=== PATIENT | male | born 1930 | race Hispanic/Latino ===

== ENCOUNTER 2017-01-04 03:23 | Inpatient (IN) | payer MEDICARE, MEDICAID ==
[2017-01-04 03:29] VITALS: BMI 17.8
--- NOTE | 2017-01-04 03:38 | ED PDOC ---
Arrival/HPI - General Time Seen by Provider: 01/04/17 03:25 Historian: EMS - History of Present Illness Narrative History of Present Illness (Text): 01/04/17 03:36 An 86 year old female, whose past medical history includes dementia, presents [facility] the emergency department [facility] for possible hematuria. Patient has no other complaints at this time. Symptom Onset: Sudden Symptom Course: Unchanged Activities at Onset: Rest Context: Other (usp) Past Medical History - Provider Review Nursing Documentation Reviewed: Yes - Infectious Disease Hx of Infectious Diseases: None - Cardiac Hx Cardiac Disorders: Yes Hx Hypertension: Yes - Pulmonary Hx Respiratory Disorders: Yes Hx Pneumonia: Yes - Neurological Hx Neurological Disorder: Yes (memory loss) Hx Dementia: Yes Hx Dizziness: Yes Hx Parkinson's Disease: Yes - HEENT Hx Difficulty Chewing: ( denies he has "no problem") Other/Comment: slow response to questions - Renal Hx Renal Failure: Yes - Endocrine/Metabolic Hx Diabetes Mellitus Type 2: Yes - Hematological/Oncological Hx Blood Disorders: No - Integumentary Hx Dermatological Disorder: No Other/Comment: slight redness to buttocks, hard thick toenails both feet, r great toenail removed post fall today, gis technician avulsed and removed nail in ed dsd intact - Musculoskeletal/Rheumatological Hx Falls: Yes - Gastrointestinal Hx Gastrointestinal Disorders: No - Genitourinary/Gynecological Hx Hematuria: Yes (09/05/14) Hx Prostate Problems: Yes (BPH) Hx Urinary Tract Infection: Yes - Psychiatric Hx Psychophysiologic Disorder: No Hx Depression: No Hx Emotional Abuse: No Hx Physical Abuse: No Hx Substance Use: No - Surgical History Hx Orthopedic Surgery: Yes (l knee sx) - Anesthesia Hx Anesthesia Reactions: No Hx Malignant Hyperthermia: No - Suicidal Assessment Feels Threatened In Home Enviroment: No Family/Social History - Physician Review Nursing Documentation Reviewed: Yes Family/Social History: No Known Family HX Smoking Status: Never Smoked Hx Alcohol Use: No Hx Substance Use: No Hx Substance Use Treatment: No Allergies/Home Meds Allergies/Adverse Reactions: Allergies No Known Allergies Allergy (Verified 04/01/16 18:41) Home Medications: Home Meds Medication Instructions Recorded Confirmed Atorvastatin [Lipitor] 20 mg PO HS 06/09/13 01/04/17 Tamsulosin [Flomax] 0.4 mg PO DAILY 06/15/13 01/04/17 Carbidopa/Levodopa 25/100 CR 1 tab PO BID 12/28/15 01/04/17 [Sinemet CR] Digoxin [Lanoxin] 0.125 mg PO DAILY 12/28/15 01/04/17 Donepezil [Aricept] 5 mg PO HS 03/29/16 01/04/17 Docusate [Colace] 2 cap PO HS 01/04/17 01/04/17 Insulin Detemir [Levemir] 18 units SC HS 01/04/17 01/04/17 Insulin Human Regular [Novolin R] 1 unit SC BID 01/04/17 01/04/17 Review of Systems - Review of Systems Systems not reviewed;Unavailable: Dementia Physical Exam - Physical Exam Narrative Physical Exam (Text): 01/04/17 03:40- Review of Systems Possible hematuria; patient is awake and alert, not anxious. Review of system is unavailable due to patient's dementia. - Physical exam Patient appears age appropriate, speaking full sentences without difficulty - Systems Exam Head: Present: Atraumatic, Normocephalic Pupils: Present: PERRL Extraocular Muscles: Present: EOMI Conjunctiva: Present: Normal Mouth: Present: Moist Mucous Membranes Neck: Present: Normal Range of Motion. No: MIDLINE TENDERNESS, Paraspinal Tenderness Respiratory/Chest: Present: Clear to Auscultation, Good Air Exchange. No: Respiratory Distress, Accessory Muscle Use, Tachypneic Cardiovascular: Present: Regular Rate and Rhythm, Normal S1, S2, Peripheral Pulses Present. No: Murmurs Abdomen: Present: Normal Bowel Sounds, No: Tenderness, Peritoneal Signs, Rebound, Guarding, Distention Back: Present: Normal Inspection. No: Midline Tenderness, Paraspinal Tenderness Upper Extremity: Present: Normal Inspection. No: Cyanosis, Edema Lower Extremity: Present: Normal Inspection. No: Edema Neurological: Present: GCS=15, Speech Normal, cranial nerves II through XII fully intact with no cerebellar abnormality, neuro-sensory fully intact. No focal neurological deficits. Skin: Present: Warm, Dry, Normal Color. No: Rashes Lymphatic: Present: OX3, NI, NC Psychiatric: Present: Alert No: anxiety Rectal: (Obi rn present) guaiac negative Genitourinary male: No penile or testicular tenderness, no blood at urethral meatus Vital Signs Reviewed: Yes Vital Signs Temp Pulse Resp BP Pulse Ox 05/06/17 06:00 65 16 134/57 L 01/04/17 04:18 98.0 F 78 H 105/43 L 100 Temperature: Afebrile Blood Pressure: Hypotensive Respiratory Rate: Tachypneic Appearance: Positive for: Well-Appearing, Non-Toxic, Comfortable Pain Distress: None Mental Status: No: Agitated, Lethargic Medical Decision Making ED Course and Treatment: 01/04/17 03:48 Impression: An 86 year old male with dementia presents with possible hematuria. On physical exam, patient alert, not anxious. On rectal exam (Obi RN present), guaiac negative. On genitourinary exam, no penile tenderness genitalia no blood at urethral meatus. Differential Diagnosis include but are not limited to: hematuria vs. hemorrhagic cystitis vs. UTI Plan: -- Labs -- Urinalysis -- IV fluids -- Reassess and disposition Prior Visits: Notes and results from previous visits were reviewed. Patient was last reported to emergency department on 04/01/16 for evaluation of weakness. Patient was admitted to telemetry. Patient was discharged on 04/03/16 and advised to take medications. Progress Notes: 01/04/17 05:[address] Meza in detail, who states to admit patient to obs under his service with Urology on consult. - Lab Interpretations Lab Results: 01/04/17 04:00 01/04/17 04:00 Lab Results 01/04/17 05:15: Urine Color Red, Urine Appearance Bloody, Urine pH 6.5, Ur Specific [place] 1.020, Urine Protein >=300 H, Urine Glucose (UA) 500 H, Urine Ketones Trace H, Urine Blood Large H, Urine Nitrate Positive H, Urine Bilirubin Moderate H, Urine Urobilinogen 1.0 H, Ur Leukocyte Esterase Trace H, Urine RBC Tntc, Urine WBC 2 - 5, Ur Epithelial Cells 1 - 3, Urine Bacteria Small 01/04/17 04:00: PT 11.0, INR 1.02, APTT 26.3 01/04/17 04:00: Sodium 142, Potassium 4.1, Chloride 103, Carbon Dioxide 30, Anion Gap 13, BUN 31 H, Creatinine 1.2, Est GFR ( Amer) > 60, Est GFR ( Non-Af Amer) 57, Random Glucose 44 L* D, Calcium 8.9, Total Bilirubin 0.6, AST 47, ALT 40, Alkaline Phosphatase 77, Total Protein 7.5, Albumin 3.4, Globulin 4.2, Albumin/Globulin Ratio 0.8 L 01/04/17 04:00: WBC 10.0, RBC 5.18, Hgb 15.0, Hct 45.6, MCV 88.0, MCH 29.0, MCHC 32.9, RDW 14.3, Plt Count 339, MPV 10.7, Gran % 53.3, Lymph % (Auto) 23.4, [place] % (Auto) 7.7 H, Eos % (Auto) 14.7 H, Baso % (Auto) 0.9, Gran # 5.35, Lymph # 2.4, [place] # 0.8 H, Eos # 1.5 H, Baso # 0.09 01/04/17 03:51: POC Glucose (mg/dL) 48 L I have reviewed the lab results: Yes - Medication Orders Current Medication Orders: Discontinued Medications Dextrose (Dextrose 50% Inj) 100 ml IVP STAT STA Stop: 01/04/17 03:54 Last Admin: 01/04/17 04:01 Dose: 100 ml Sodium Chloride (Sodium Chloride 0.9%) 500 mls @ 1,000 mls/hr IV .Q30M STA Stop: 01/04/17 04:09 Last Admin: 01/04/17 04:10 Dose: 1,000 mls/hr Ceftriaxone Sodium (Rocephin 1 Gram Ivpb) 1 gm in 100 mls @ 200 mls/hr IV STAT STA PRN Reason: Protocol Stop: 01/04/17 06:10 Last Admin: 01/04/17 06:05 Dose: 200 mls/hr - Scribe Statement Lali Monet All medical record entries made by the Scribe were at my direction and personally dictated by me. I have reviewed the chart and agree that the record accurately reflects my personal performance of the history, physical exam, medical decision making, and the department course for this patient. I have also personally directed, reviewed, and agree with the discharge instructions and disposition. Disposition/Present on Arrival - Present on Arrival Any Indicators Present on Arrival: No History of DVT/PE: No History of Uncontrolled Diabetes: No Urinary Catheter: No History Surgical Site Infection Following: None - Disposition Have Diagnosis and Disposition been Completed?: Yes Diagnosis: Hematuria Disposition: HOSPITALIZED Disposition Time: 05:49 Patient Plan: Observation Condition: FAIR
[2017-01-04] MEDS ORDERED: Sodium Chloride 0.9% 500 ML IV STA (03:40)
[2017-01-04] MEDS ORDERED: Dextrose 50% SYRINGE Inj (50 ml) IVP STA (03:53)
[2017-01-04 04:22] LABS: ADD MANUAL DIFF? NO
[2017-01-04 04:36] LABS: ALB/GLOB RATIO 0.8 (1.1-1.8); ALKALINE PHOSPHATASE 77 U/L (38-133); ALT/SGPT 40 U/L (7-56); AST/SGOT 47 U/L (15-59); BILIRUBIN,TOTAL 0.6 mg/dL (0.2-1.3); BLOOD UREA NITROGEN 31 mg/dL (7-21); CALCIUM 8.9 mg/dL (8.4-10.5); CARBON DIOXIDE 30 mmol/L (21-33); CHLORIDE 103 mmol/L (98-107); GFR AFRICAN-AMERICAN > 60; POTASSIUM 4.1 mmol/L (3.6-5.0); SODIUM 142 mmol/L (132-148); TOTAL PROTEIN 7.5 g/dL (5.8-8.3)
[2017-01-04 04:38] LABS: HEMATOCRIT 45.6 % (42.0-52.0); MEAN CORPUSCULAR HGB CONC 32.9 g/dl (31.0-37.0)
[2017-01-04 04:39] LABS: BASO # 0.09 [, K/mm3] (0.0-2.0); BASO % 0.9 % (0.0-3.0); EOS # 1.5 (0.0-0.7); EOS % 14.7 % (1.5-5.0); GRAN # 5.35 (1.4-6.5); GRAN % 53.3 % (50.0-68.0); LYMPH # 2.4 (1.2-3.4); LYMPH % 23.4 % (22.0-35.0); MEAN PLATELET VOLUME 10.7 fl (7.0-11.0); MONO # 0.8 (0.1-0.6); MONO % 7.7 % (1.0-6.0); PLATELET COUNT 339 [, 10^3/uL] (120.0-450.0); RED CELL DISTRIBUTION WIDTH 14.3 % (11.5-14.5)
[2017-01-04 04:45] LABS: INR 1.02 (0.93-1.08); PARTIAL THROMBOPLASTIN TIME 26.3 Seconds (23.7-30.8)
[2017-01-04 04:47] LABS: GLUCOSE,RANDOM 44 mg/dL (70-110)
[2017-01-04 05:33] LABS: PH,URINE 6.5 (4.7-8.0); URINE BILIRUBIN MODERATE (NEGATIVE); URINE BLOOD LARGE (NEGATIVE); URINE GLUCOSE (UA) 500 mg/dL (NEGATIVE); URINE KETONE TRACE mg/dL (NEGATIVE); URINE LEUKOCYTE ESTERASE TRACE Leu/uL (NEGATIVE); URINE PROTEIN >=300 mg/dL (<30 mg/dL)
[2017-01-04] MEDS ORDERED: cefTRIAXone 1 gm 1 GM/100 ML BAG IV STA (05:41)
[2017-01-04 05:44] LABS: URINE APPEARANCE BLOODY (CLEAR)
[2017-01-04 06:01] LABS: URINE BACTERIA SMALL (NEG); URINE COLOR RED (YELLOW); URINE RBC TNTC /hpf (0-2)
[2017-01-04] MEDS: cefTRIAXone 1 gm 1 GM/100 ML BAG IVPB SCH (10:58)
[2017-01-04] MEDS: Digoxin 125 mcg (0.125 mg) Tab PO SCH (10:58)
[2017-01-04] MEDS: Carbidopa/Levodopa 25/100 CR PO SCH ×2 (11:00→18:00)
[2017-01-04] MEDS: Levothyroxine 100 MCG TAB PO SCH (11:01)
[2017-01-04] MEDS ORDERED: Pneumococcal 23-Valent Vaccine IM ONE (13:16)
[2017-01-04] MEDS: Insulin Reg-MEDIUM-Coverage SC SCH ×3 (13:49→21:29)
--- NOTE | 2017-01-04 13:55 | CT ---
PROCEDURE: CT Abdomen and Pelvis without intravenous contrast HISTORY: hematuria COMPARISON: 12/29/2015. TECHNIQUE: Technique. Contrast Dose: Radiation dose: Total exam DLP = 240 mGy-cm. This CT exam was performed using one or more of the following dose reduction techniques: Automated exposure control, adjustment of the mA and/or kV according to patient size, and/or use of iterative reconstruction technique. FINDINGS: LOWER THORAX: Unremarkable. LIVER: Unremarkable. No gross lesion or ductal dilatation. GALLBLADDER AND BILE DUCTS: Unremarkable. PANCREAS: Unremarkable. No gross lesion or ductal dilatation. SPLEEN: Unremarkable. ADRENALS: Unremarkable. No mass. KIDNEYS AND URETERS: Unremarkable. No hydronephrosis. No solid mass. VASCULATURE: Unremarkable. No aortic aneurysm. BOWEL: Unremarkable. No obstruction. No gross mural thickening. APPENDIX: Unremarkable. Normal appendix. PERITONEUM: Unremarkable. No free fluid. No free air. LYMPH NODES: Unremarkable. No enlarged lymph nodes. BLADDER: Multiple bladder calculi. . REPRODUCTIVE: Prostate enlargement. BONES: No acute fracture. OTHER FINDINGS: None. IMPRESSION: Unremarkable non contrast enhanced CT of the abdomen and pelvis.
--- NOTE | 2017-01-04 14:35 | HP ---
HISTORY OF PRESENT ILLNESS: The patient is an 86-year-old patient of Dr. Meza, covering him for over the weekend. [facility] of blood in the urine. He does compl ain of some discomfort in the lower abdominal area and he is very anxious about it. Denies any fever or chills. The patient is not a very good historian; however, information obtained from old medical record and ER physician's report. He states he does not have good appetite. Denies any nausea or v omiting currently. PAST MEDICAL HISTORY: Significant for: 1. Parkinson disease. 2. Dementia. 3. Hypothyroidism. 4. Noninsulin dependent diabetes. 5. Hyperlipidemia. 6. Coronary artery disease. 7. History of benign prostatic hypertrophy. ALLERGIES: He is not allergic to any medication. MEDICATIONS IN The REHAB: He is on Flomax 0.4 daily, levothyroxine 100 mcg daily, Levemir 18 units a t bedtime. He is on Aricept, digoxin 0.125 daily, carbidopa/levodopa 1 tablet twice a day, atorvasta tin 20 mg at bedtime, aspirin 81 daily. SOCIAL HISTORY: He is , currently was on rehabilitation. Denies smoking, drinking or alcohol abuse. REVIEW OF SYSTEMS: Significant for being anxious, having suprapubic discomfort and poor appetite. PHYSICAL EXAMINATION: GENERAL: He is awake and alert, communicative, answers simple questions. VITAL SIGNS: He is afebrile, pulse 63, blood pressure 105/43. LUNGS: Bilateral fair airflow, no rhonchi or crackle. HEART: S1, S2 audible. ABDOMEN: Soft, slight suprapubic discomfort. No rebound, no guarding. NEUROLOGIC: He is awake and alert, communicative. Moves all extremities. EXTREMITIES: Bilateral leg, no edema. LABORATORY DATA: WBC is 10, hemoglobin 15, hematocrit 45, platelets 339. PT 11.0, INR 1.02. Chemis try: Sodium 142, potassium 4.1, chloride 103, CO2 30, BUN 31, creatinine 1.2, blood sugar 185. Urin alysis shows large blood, positive nitrites and moderate bilirubin, trace leukocyte. ASSESSMENT: 1. Hematuria, rule out underlying urinary tract infection versus nephrolithiasis versus benign prost atic hypertrophy. 2. Parkinson's disease. 3. Non-insulin dependent diabetes. 4. Hypertension. PLAN: Will continue patient on Aricept, aspirin, and start him on some laxatives and continue his Fl omax. We will monitor his blood sugar, currently it is running low because of his poor oral intake. We will keep him on sliding scale. Once he starts eating well, we will put him on scheduled dose. Dr. Salazar has been consulted, awaiting his input. Empirically start him on IV antibiotics since he palumbo s positive leukocyte and blood in the urine. Urine cultures are sent. We will follow up sensitivity report. Jaye Valdez MD cc: [phone] TT: 01/04/2017 14:34:22 jn
[2017-01-04] MEDS ORDERED: Insulin Reg-MEDIUM-Coverage SC SCH (18:00)
[2017-01-04] MEDS: Insulin Detemir 100 units/ml Vial (Levemir) SC SCH (21:33)
--- NOTE | 2017-01-05 00:13 | CP.PCM.PN ---
Subjective - Date & Time of Evaluation Date of Evaluation: 01/05/17 Time of Evaluation: 00:12 - Subjective Subjective: Patient was seen at bedside because he complained of chest pain. Chest pain has been present in precordial area, not radiating, mild,has no sob , sweating, palpitations, nausea, vomiting, cough. Pertinent medical history was reviewed. This 86 year old white male was admitted Has PMH of dementia,hypothyroidism, CAD, hyperlipidemia,NIDDM, CAD, BPH. Objective - Vital Signs/Intake and Output Vital Signs (last 24 hours): Temp Pulse Resp BP Pulse Ox 97.5 F L 62 19 116/61 97 01/04/17 16:21 01/04/17 16:21 01/04/17 16:21 01/04/17 16:21 01/04/17 16:21 Intake and Output: 01/04/17 01/05/17 18:59 06:59 Intake Total 780 Output Total 2 Balance 780 -2 - Medications Medications: Current Medications Acetaminophen (Tylenol 325mg Tab) 650 mg PO Q6H PRN PRN Reason: Fever >100.4 F Aspirin (Aspirin Chewable) 81 mg PO DAILY [facility] Last Admin: 01/04/17 10:58 Dose: 81 mg Atorvastatin Calcium (Lipitor) 20 mg PO [facility] Carbidopa/Levodopa (Sinemet Cr) 1 tab PO BID [facility] Last Admin: 01/04/17 18:00 Dose: 1 tab Digoxin (Lanoxin) 0.125 mg PO DAILY [facility] Last Admin: 01/04/17 10:58 Dose: 0.125 mg Docusate Sodium (Colace) 100 mg PO [facility] Last Admin: 01/04/17 21:29 Dose: Not Given Donepezil HCl (Aricept) 5 mg PO [facility] Last Admin: 01/04/17 21:28 Dose: 5 mg Ceftriaxone Sodium (Rocephin 1 Gram Ivpb) 1 gm in 100 mls @ 100 mls/hr IVPB DAILY [facility] PRN Reason: Protocol Last Admin: 01/04/17 10:58 Dose: 100 mls/hr Insulin Detemir (Levemir) 18 unit SC [facility] Last Admin: 01/04/17 21:33 Dose: 18 unit Insulin Human Regular (Humulin R Med) 0 units SC [facility] PRN Reason: Protocol Last Admin: 01/04/17 21:29 Dose: Not Given Levothyroxine Sodium (Synthroid) 100 mcg PO ACB [facility] Last Admin: 01/04/17 11:01 Dose: 100 mcg Tamsulosin HCl (Flomax) 0.4 mg PO DAILY [facility] Last Admin: 01/04/17 10:58 Dose: 0.4 mg - Labs Labs: PT 11.0 Seconds (9.9-11.8) 01/04/17 04:00 INR 1.02 (0.93-1.08) 01/04/17 04:00 APTT 26.3 Seconds (23.7-30.8) 01/04/17 04:00 - Constitutional Appears: Well, No Acute Distress - Head Exam Head Exam: ATRAUMATIC, NORMAL INSPECTION, NORMOCEPHALIC - Eye Exam Eye Exam: Normal appearance - ENT Exam ENT Exam: Normal External Ear Exam - Neck Exam Neck Exam: Normal Inspection - Respiratory Exam Respiratory Exam: NORMAL BREATHING PATTERN - Cardiovascular Exam Cardiovascular Exam: absent: JVD - GI/Abdominal Exam GI & Abdominal Exam: absent: Distended - Rectal Exam Rectal Exam: Deferred - Extremities Exam Extremities Exam: Normal Inspection - Back Exam Back Exam: NORMAL INSPECTION - Neurological Exam Neurological Exam: Alert, Oriented x3 Additional comments: Has sometimes shaking of both upper extremities. - Psychiatric Exam Psychiatric exam: Normal Affect, Normal Mood - Skin Skin Exam: Normal Color Assessment and Plan - Assessment and Plan (Free Text) Assessment: A/P:Chest pain-atypical. Hypothyroidism. Hyperlipidemia. CAD hx. NIDDM. Dementia. EKG------------------>Atrial fibrillation , LBBB not changed from EKG Apr 2016. Troponin ----------->0.10 down from 0.14 in Apr 2016. Tylenol 650 mg PO X 1. Protonix 40 mg PO X 1.
[2017-01-05] MEDS ORDERED: Pantoprazole 40 mg EC Tab PO STA (00:39)
[2017-01-05] MEDS: Insulin Reg-MEDIUM-Coverage SC SCH ×3 (08:14→17:19)
[2017-01-05] MEDS: Levothyroxine 100 MCG TAB PO SCH (10:38)
[2017-01-05] MEDS: Digoxin 125 mcg (0.125 mg) Tab PO SCH (10:38)
[2017-01-05] MEDS: Carbidopa/Levodopa 25/100 CR PO SCH ×2 (10:38→17:40)
[2017-01-05] MEDS: cefTRIAXone 1 gm 1 GM/100 ML BAG IVPB SCH (10:41)
--- NOTE | 2017-01-05 14:56 | CARD ---
APPROVED REPORT EKG Measurement Heart [id number] <Conclusion> Atrial fibrillation Left bundle branch block Abnormal ECG
--- NOTE | 2017-01-05 15:20 | PN ---
DATE: 01/05/2017 The patient is an 86-year-old, seen and examined, sitting in chair, hard of hearing, ate well this mo rning. No more hematuria as per nurse. PHYSICAL EXAMINATION: VITAL SIGNS: He is afebrile, pulse 62, respirations 18, blood pressure 105/47. LUNGS: Bilateral fair airflow, no rhonchi or crackle. HEART: S1, S2 audible. ABDOMEN: Soft, nontender, no rebound, no guarding. NEUROLOGIC: He is awake and alert, communicative, hard of hearing, moves all extremities. His urine culture has no growth and CT scan of the abdomen and pelvis was done. That is unremarkable . ASSESSMENT: 1. Mild dementia. 2. Impaired hearing. 3. Hematuria that is resolving. No evidence of urinary tract infection. 4. History of benign prostatic hypertrophy. PLAN: Awaiting urology evaluation. Continue antibiotics. Discharge plan in a.m. depending on if kavya taylor's hematuria resolves and no intervention is needed by urologist. Jaye Valdez MD cc: [phone] TT: 01/05/2017 15:20:06 Confirmation # [id number] Dictation # [id number] en
[2017-01-05] MEDS: Insulin Detemir 100 units/ml Vial (Levemir) SC SCH (22:00)
--- NOTE | 2017-01-06 04:57 | PCM.URO ---
Urology Progress Note - Objective Lab Results Last 24 Hours: Laboratory Results - last 24 hr 01/05/17 01/05/17 01/05/17 07:11 08:18 11:24 POC Glucose (mg/dL) 59 L 111 H 249 H 01/05/17 01/05/17 16:40 21:44 POC Glucose (mg/dL) 119 H 235 H Intake & Output: Intake & Output 01/05/17 01/05/17 01/06/17 06:59 18:59 06:59 Intake Total 960 Output Total 2 Balance -2 960 Intake: Oral 960 Output: Urine/Stool Mix 2 Other: # Bowel Movements 1 1 Vital Signs: Vital Signs - 24 hr 01/05/17 01/05/17 11:09 16:38 Temperature 97.7 F 97.8 F Pulse Rate 62 64 Respiratory 18 19 Rate Blood Pressure 105/47 L 116/65 O2 Sat by Pulse 100 98 Oximetry
[2017-01-06] MEDS: Insulin Reg-MEDIUM-Coverage SC SCH ×3 (08:30→21:25)
[2017-01-06] MEDS: Levothyroxine 100 MCG TAB PO SCH (08:41)
--- NOTE | 2017-01-06 09:43 | CON ---
DATE: 01/05/2017 REASON FOR CONSULTATION: Hematuria. A very pleasant gentleman. He comes from a [facility]. He lives in [facility]. I hav e had a chance also to speak to the patient's . History is in the chart. The patient presented with gross hematuria. I had spoken to the nurses and we had ordered a CT scan of the abdomen and pelvis and see the finding s below, but basically there are some stones in the bladder, no obvious bladder lesions otherwise. It is difficult to get the entire history from the patient, but it does not sound like he has had a p rior urologic history, according to his , and no previous episodes of gross hematuria. He is now here with gross hematuria and findings on the CT scan, see below, of stones. Urology is consulted for further recommendations. Difficult to assess any major voiding dysfunction. PAST MEDICAL AND SURGICAL HISTORY: As listed on the chart. MEDICATIONS: Listed. ALLERGIES: . PHYSICAL EXAMINATION: GENERAL: Well-nourished male. He is currently resting comfortably in his bed . LUNGS: Clear. HEART: Normal S1, S2. ABDOMEN: Relatively soft. Not grossly distended. Difficult to evaluate further. RECTAL: Deferred at this point. LABORATORIES: See chart. DIAGNOSES: Gross hematuria and bladder stones seen on the CT scan. PLAN: He is a very pleasant elderly gentleman who is coming from a [facility], a very pleasant 86- year-old gentleman with the above history. I have to discuss with Dr. Meza and the further plans, possible cystoscopy and cystolitholapaxy, that is lasering the stones from the bladder and rem oving the stones. Depending on his medical condition and status. We can discuss all this further. In the interim, the patient's vital signs are within normal limits, remaining stable. So for now, the plan is as follows: Observation and then we will discuss and recommend the possibili ty for a cystoscopy and laser lithotripsy and then further plans will follow. Thank you for the urology consult. Pee Morris MD cc: [phone] TT: 01/06/2017 09:42:30 Confirmation # [id number] Dictation # [id number] en
[2017-01-06] MEDS: cefTRIAXone 1 gm 1 GM/100 ML BAG IVPB SCH (09:55)
[2017-01-06] MEDS: Digoxin 125 mcg (0.125 mg) Tab PO SCH (09:55)
--- NOTE | 2017-01-06 11:18 | CON ---
DATE: 01/06/2017 ADDENDUM Addendum to original note. The ____ consult was 01/05 that I dictated. This is just an addendum. Ref er to the chart. Further discussion with Dr. Meza reveals that the patient has already been seen before with Dr. Debbie wolff and Dr. Tolbert. So I am going to have followup care with them in terms of further management for s tones and bleeding, etc. So this is just a followup. The original plan of the possibility for a cystoscope, we are going to t urn over care to Dr. Salazar and Dr. Tolbert. Pee Morris MD cc: [phone] TT: 01/06/2017 11:18:37 Confirmation # [id number] Dictation # [id number] jn
--- NOTE | 2017-01-06 11:29 | PN ---
DATE: 01/06/2017 DATE: 01/06/2017 SUBJECTIVE: The patient has no complaints of any chest pain, no shortness of breath, no headaches or dizziness. PHYSICAL EXAMINATION: VITAL SIGNS: Temperature is 97.8. Pulse is 64. Blood pressure is 116/65, respirations 19. GENERAL: The patient is comfortable, in no acute distress. HEENT: Anicteric sclerae. Moist mucosa. NECK: No JVD or adenopathy. CARDIAC: S1/S2. No murmurs. No rubs. Regular. RESPIRATORY: Clear to auscultation bilaterally. No wheezes, rales, or rhonchi. Good air entry. ABDOMEN: Bowel sounds are positive, soft, nontender, and nondistended. EXTREMITIES: No edema. Has 1+ pulses. ASSESSMENT: 1. Hematuria. 2. Dementia. 3. Parkinson's. 4. Hearing impairment. PLAN: The patient is currently comfortable. He is on Aricept. He is going to be on aspirin. He di d have hematuria that has improved. He is on Lipitor for dyslipidemia. His Parkinson's medications are carbidopa, levodopa. He is on Synthroid for hypothyroidism. He was seen by Dr. Morris. He is on a liquid diet. Hemoglobin is stable. His fingersticks are und er control. He did have a barium swallow done last week. Results are still pending. Kendall Meza MD cc: [id number] TT: 01/06/2017 11:29:32 Confirmation # [id number] Dictation # [id number] simeon
[2017-01-06] MEDS: Insulin Detemir 100 units/ml Vial (Levemir) SC SCH (21:46)
[2017-01-07 07:13] LABS: HEMATOCRIT 44.9 % (42.0-52.0); MEAN CELL VOLUME 87.9 fL (80.0-105.0); MEAN CORPUSCULAR HEMOGLOBIN 29.5 pg (25.0-35.0); MEAN CORPUSCULAR HGB CONC 33.6 g/dl (31.0-37.0); MEAN PLATELET VOLUME 10.7 fl (7.0-11.0); WHITE BLOOD COUNT 7.9 [, 10^3/ul] (4.5-11.0)
[2017-01-07 07:42] LABS: ALB/GLOB RATIO 0.8 (1.1-1.8); ALKALINE PHOSPHATASE 90 U/L (38-133); ALT/SGPT 52 U/L (7-56); AST/SGOT 31 U/L (15-59); BILIRUBIN,TOTAL 0.6 mg/dL (0.2-1.3); BLOOD UREA NITROGEN 18 mg/dL (7-21); CALCIUM 8.5 mg/dL (8.4-10.5); CARBON DIOXIDE 26 mmol/L (21-33); CHLORIDE 105 mmol/L (95-110); GFR AFRICAN-AMERICAN > 60; GLUCOSE,RANDOM 125 mg/dL (70-110); POTASSIUM 4.1 mmol/L (3.6-5.0); SODIUM 138 mmol/L (132-148)
[2017-01-07] MEDS: Levothyroxine 100 MCG TAB PO SCH (07:47)
[2017-01-07 08:23] VITALS: BP 116/57; PULSE 72; RESP 18; TEMP 97.7; O2SAT 98
[2017-01-07] MEDS: Insulin Reg-MEDIUM-Coverage SC SCH ×3 (08:25→11:53)
[2017-01-07] MEDS: Carbidopa/Levodopa 25/100 CR PO SCH (10:48)
[2017-01-07] MEDS: cefTRIAXone 1 gm 1 GM/100 ML BAG IVPB SCH (10:48)
[2017-01-07] MEDS: Digoxin 125 mcg (0.125 mg) Tab PO SCH (10:48)
[2017-01-07 11:07] VITALS: PULSE 74
--- NOTE | 2017-01-07 12:44 | DS ---
This is an 86-year-old male who had come into the hospital because he had hematuria. The patient's h ematuria has improved. He was seen by Dr. Morris for evaluation. The patient has seen Dr. Salazar in the past. I spoke to Dr. Morris and the plan was conservative management. The patient has multiple stones in the bladder that most likely are the cause of his hematuria. Given that he is an 86-year- old, frail, there are concerns that he may have complications with not much benefit. The patient's h emoglobin has been stable. He has no complaints of any headaches, no dizziness. He recently had a b arium swallow done. Will await further input from Dr. Salazar. I did speak to the patient's murtaza huffman to give her an update on the patient's diagnosis and plan of care. No chest pain, no shortness of breath. PHYSICAL EXAMINATION: VITAL SIGNS: Temperature is 98.2, pulse is 70, blood pressure is 110/60, respirations 19, O2 saturat ion 96%. GENERAL: The patient comfortable, in no acute distress. HEENT: Anicteric sclerae. Moist mucosa. NECK: No JVD or adenopathy. CARDIAC: S1/S2. No murmurs. No rubs. Regular. RESPIRATORY: Clear to auscultation bilaterally. No wheezes, rales, or rhonchi. Good air entry. ABDOMEN: Bowel sounds are positive, soft, nontender, and nondistended. EXTREMITIES: No edema. Has 1+ pulses. ASSESSMENT: 1. Hematuria. 2. Dementia. 3. Parkinson's. 4. Hearing impairment. 5. Hypothyroidism. 6. Diabetes type 2. 7. Benign prostatic hypertrophy. 8. Coronary artery disease. 9. Frailty. 10. Congestive heart failure, secondary to diastolic dysfunction. 11. History of right hallux fracture. 12. Constipation. PLAN: The patient is comfortable. He is on his aspirin. He is going to continue with Aricept for h is dementia. He is on Flomax for his benign prostatic hypertrophy. The patient is on Levemir for hi s diabetes. He is on Lipitor for dyslipidemia. He is on an insulin sliding scale. He is on carbido pa/levodopa for his Parkinson's. He is on Synthroid for hypothyroidism. He is on a dysphagia modifi ed diet. Kendall Meza MD cc: [id number] TT: 01/07/2017 09:46:47 en
--- NOTE | 2017-01-07 15:52 | CON ---
DATE: 01/07/2017 CHIEF COMPLAINT: Bladder stones. HISTORY OF PRESENT ILLNESS: This is an 86-year-old man with dementia who [facility] in a [facility] and was brought to the Emergency Room because they noticed some hematuria. History is obtained from the chart. The patient cannot give an adequate history. He had no fever or chills. His white count is normal. He is afebrile. His hemoglobin is 15. According to the nurses, he has been urinating well and in good amounts. PAST MEDICAL HISTORY: Significant for Parkinson's, dementia, kky-mutvbfy-ryiyubebi diabetes, coronar y artery disease and hyperlipidemia. ALLERGIES: He has no allergies. MEDICATIONS: He is currently on Flomax, levothyroxine, Levemir, Aricept, carbidopa/levodopa, Lipitor . SOCIAL HISTORY: Noncontributory. FAMILY HISTORY: Also noncontributory. REVIEW OF SYMPTOMS: No current symptoms referable to the head, eyes, ears, nose or throat. No cardi ac or respiratory symptoms. No dermatologic symptoms. PHYSICAL EXAMINATION: VITAL SIGNS: Shows him to be afebrile, blood pressure 116/57, pulse 72, respirations 18. ABDOMEN: No CVA pain. No hepatosplenomegaly, rebound or guarding. No suprapubic tenderness. GENITALIA: Unremarkable. LABORATORY DATA: Shows white count 7900, hemoglobin 15.1. Chemistry shows a creatinine of 1. His a lbumin is 3.1. As mentioned, his hemoglobin is 15.1. Urine culture was no growth. A CT of the abdo men and pelvis shows bladder stones. I am having the nurse do a bladder scan on him to see if there is any significant residual urine. Given his medical situation, I would not do anything on him as lo ng as his postvoid residual is reasonable. Giving him anesthesia will make his dementia worse. His urine culture was no growth. The fact that he has bladder calculi, as long as he is voiding I would not treat them. He is not having significant obstructive uropathy; I would leave him alone. He is n ot anemic from hematuria and I think a conservative approach would be the wisest. Nader Salazar MD cc: [id number] TT: 01/07/2017 15:51:14 Confirmation # [id number] Dictation # [id number]
== END 2017-01-07 16:08 | DRG 694 ==
LOC: ED 03:23 → ERH 05:49 → 3RSO 06:54 → OBSVTOIN 01-06 13:00
PROVIDERS: ADMIT Internal Medicine Nephrology; ATTEND Internal Medicine Nephrology
DX: N21.0 Calculus in bladder (principal); I50.30 Unspecified diastolic (congestive) heart failure; G20 Parkinson's disease; I11.0 Hypertensive heart disease with heart failure; F02.80 Dementia in other diseases classified elsewhere, unspecified severity, without behavioral disturbance, psychotic disturbance, mood disturbance, and anxiety; H91.90 Unspecified hearing loss, unspecified ear; E03.9 Hypothyroidism, unspecified; E11.9 Type 2 diabetes mellitus without complications; N40.0 Benign prostatic hyperplasia without lower urinary tract symptoms; I25.10 Atherosclerotic heart disease of native coronary artery without angina pectoris; R54 Age-related physical debility; I48.91 Unspecified atrial fibrillation; I44.7 Left bundle-branch block, unspecified; E78.5 Hyperlipidemia, unspecified; K59.00 Constipation, unspecified; R31.0 Gross hematuria; Z79.4 Long term (current) use of insulin; Z79.84 Long term (current) use of oral hypoglycemic drugs; Z79.899 Other long term (current) drug therapy; Z87.01 Personal history of pneumonia (recurrent); Z87.440 Personal history of urinary (tract) infections; R40.2412 Glasgow coma scale score 13-15, at arrival to emergency department; R31.9 Hematuria, unspecified; Z87.81 Personal history of (healed) traumatic fracture